=== PATIENT | male | born 1935 | race Caucasian/White ===

== ENCOUNTER → 2017-05-27 | Outpatient (CLI) | payer MEDICARE, OTHER | END | disposition home or self-care (01) | LOC: GMAB 11:25 | PROVIDERS: ATTEND Family Medicine | DX: Z12.5 Encounter for screening for malignant neoplasm of prostate (principal); E03.9 Hypothyroidism, unspecified | CPT/HCPCS: 84439; 84443; 84481; G0103 ==

== ENCOUNTER → 2018-04-21 | Outpatient (CLI) | payer MEDICARE, OTHER | LOC: LAB 12:24 | PROVIDERS: ATTEND Physician Assistant | DX: R00.1 Bradycardia, unspecified (principal) ==

== ENCOUNTER → 2019-08-14 | Outpatient (CLI) | payer MEDICARE, OTHER ==
--- NOTE | 2019-08-14 12:03 | RAD ---
Single frontal view pelvis Indication: PAIN IN RIGHT HIP Comparison: February 27, 2016 Impression: No acute fracture identified. Evaluation for fracture is limited given the degree of osteopenia. If high clinical concern for acute fracture, correlation with MRI recommended given its greater sensitivity in the osteopenic patient. If the patient cannot tolerate MRI imaging or more urgent imaging is required, CT could be performed, however it is less sensitive in the osteopenic patient when compared to MRI. Mild bilateral hip osteoarthritis with joint space narrowing and tiny osteophytes. Enthesophyte formation at the right lesser trochanter. Lower lumbar disc disease. Osteopenia. If this is a new finding, DEXA scan recommended as well as evaluation for possible osteoporosis treatment. Electronically signed by: Higinio Camarillo MD 08/14/2019 12:02 PM CDT
--- NOTE | 2019-08-14 12:03 | RAD ---
EXAM DESCRIPTION: Knee,Right Complete CLINICAL HISTORY: 84 years Male, PAIN IN RIGHT KNEE COMPARISON: None. Findings: Severe medial compartment narrowing with lateral tibial translation. Chondrocalcinosis. Osteopenia. No acute fracture or dislocation is identified. Small joint effusion. Tricompartmental osteophytes. IMPRESSION: Right knee osteoarthritis with a small joint effusion. Electronically signed by: Perez Sage MD 08/14/2019 12:02 PM CDT
== END ==
LOC: RAD 08:52
PROVIDERS: ATTEND Orthopaedic Surgery
DX: M17.11 Unilateral primary osteoarthritis, right knee (principal); M85.851 Other specified disorders of bone density and structure, right thigh; M76.891 Other specified enthesopathies of right lower limb, excluding foot; M16.0 Bilateral primary osteoarthritis of hip

== ENCOUNTER → 2019-08-23 | Outpatient (CLI) | payer MEDICARE, OTHER | LOC: GMAE 13:05 | PROVIDERS: ATTEND Family Medicine | DX: E03.9 Hypothyroidism, unspecified (principal); I10 Essential (primary) hypertension; Z12.5 Encounter for screening for malignant neoplasm of prostate | CPT/HCPCS: 84439; 84443; 84481; G0103 ==

== ENCOUNTER → 2020-03-26 | Outpatient (CLI) | payer MEDICARE, OTHER | DX: R00.2 Palpitations (principal) ==

== ENCOUNTER → 2020-08-14 | Outpatient (CLI) | payer MEDICARE, OTHER | LOC: GMAE 15:28 | PROVIDERS: ATTEND Family Medicine | DX: E03.9 Hypothyroidism, unspecified (principal); Z12.5 Encounter for screening for malignant neoplasm of prostate; E78.5 Hyperlipidemia, unspecified ==